=== PATIENT | male | born 1940 | race Caucasian/White ===

== ENCOUNTER → 2017-08-10 14:11 | Outpatient (CLI) | payer MEDICARE, OTHER ==
[~2017-08-10 14:11] MED LIST: ASPIRIN325 MG PO; HYDROCODON-ACE1 EAC7 PO; LEVOTHYROXINE100 MCG PO; PREDNISONE20 MG PO; PROAIR HFA8.5 GM INH; ROBITUSSIN DM 110 ML PO; VASOTEC5 MG PO; ZPAK PO
== END | disposition home or self-care (01) ==
LOC: D.CT 14:11
DX: R63.4 Abnormal weight loss (principal)

== ENCOUNTER 2017-10-11 07:30 | Inpatient (IN) | payer MEDICARE, OTHER ==
[2017-10-10 09:49] LABS: BASOPHILS 0.2 % (0-2); EOSINOPHILS 1.9 % (0-7); HEMATOCRIT 41.6 % (42.0-54.0); HEMOGLOBIN 13.9 g/dL (13.5-17.5); IMMATURE GRANULOCYTES 0.3 % (0-5); LYMPHOCYTES 21.1 % (15-50); MCHC 33.4 g/dL (31.0-37.0); MCV 95.9 fL (80.0-100.0); MEAN PLATELET VOLUME 10.1 fL (7.4-10.4); MONOCYTES 8.7 % (2-11); NEUTROPHILS 67.8 % (40-80); PLATELET COUNT 171 10x3/uL (130-400); RBC 4.34 10x6/uL (4.20-6.10); RDW 12.4 % (11.5-14.5); WBC 5.9 10x3/uL (4.8-10.8)
[2017-10-10 09:54] LABS: APPEARANCE CLEAR (CLEAR); BILIRUBIN NEGATIVE (NEGATIVE); COLOR YELLOW (YELLOW); GLUCOSE NEGATIVE (NEGATIVE); KETONE NEGATIVE (NEGATIVE); NITRITE NEGATIVE (NEGATIVE); PROTEIN NEGATIVE (NEGATIVE); UROBILINOGEN NORMAL (NORMAL)
[2017-10-10 09:55] LABS: BACTERIA FEW /hpf (NONE SEEN); EPITHELIAL CELLS OCC /hpf (0-5); MUCUS >1+ /lpf (NONE SEEN); RED CELLS - URINE 0-5 /hpf (0-5); WHITE CELLS - URINE OCC /hpf (0-5)
[2017-10-10 09:57] LABS: APTT 39.5 SECONDS (22.8-39.4); INR 0.97 (0.85-1.17); PROTIME 12.5 SECONDS (11.6-15.0)
[2017-10-10 10:03] LABS: ALKALINE PHOSPHATASE 107 U/L (46-116); ALT (SGPT) 22 U/L (10-68); BILIRUBIN - TOTAL 0.42 mg/dL (0.2-1.3); CALC OSMOLALITY 275 mosm/kg (275-300); CALCIUM 9.3 mg/dL (8.5-10.1); CARBON DIOXIDE 34.3 mmol/L (21.0-32.0); CHLORIDE - SERUM 99 mmol/L (98-107); GLUCOSE 97 mg/dL (74-106); PROTEIN - SERUM 7.4 g/dL (6.4-8.2); SODIUM 137 mmol/L (136-145); UREA NITROGEN 18 mg/dL (7-18); eGFR NON AFRICAN AMERICAN 77 mL/min (90-120)
[~2017-10-11] VITALS: Ht 188 cm; Wt 73.1 kg
[2017-10-11] VITALS (16 sets, daily range): BP systolic 109–140; BP diastolic 61–94; BMI 20.1
--- NOTE | ~2017-10-11 | OP ---
PATIENT NAME: LEEROY CUELLAR MEDICAL RECORD: [id number] :44 LOCATION:D.CVI [id number] ADMISSION DATE:10/11/17 SURGEON: BENSON JUSTICE MD DATE OF OPERATION: 10/11/2017 SURGEON: Benson Justice MD SALES OPERATIONS ASSISTANT: Anne Dugan MD and VIKTORIYA Stafford. OPERATION PERFORMED: Percutaneous endovascular aortic repair with: 1. Placement of bifurcated aortic endograft. 2. Placement of suprarenal extension. 3. Open right femoral exposure. 4. Aortogram times 3. 5. Right iliac angiogram. 6. Aortic angioplasty, right iliac angioplasty. PREOPERATIVE DIAGNOSIS: Abdominal aortic aneurysm. POSTOPERATIVE DIAGNOSIS: Abdominal aortic aneurysm. ANESTHESIA: General endotracheal anesthesia. ESTIMATED BLOOD LOSS: 100 cc. COMPLICATIONS: None. SPECIMENS: None. CONDITION: Stable. DISPOSITION: ICU. OPERATIVE FINDINGS: 1. Pigtail placed up the left through a 7-Cypriot sheath in order to evaluate the renal anatomy due to a previously noncontrasted scan and also the tortuosity and size of the iliac vessels, both were tortuous, slightly worse in the left somewhat more calcification on the right, so we elected the right as the ipsi side. 2. Two ProGlide devices predeployed on the right. A postprocedure ProGlide deployed on the left. 3. 25/110 main body and 25/95 suprarenal extension landed just below the renals. Completion angiogram with good flow. Reliant balloon as well as a 9 x 40. 4. Completion right iliac angiogram after percutaneous closure with no obstruction to flow. INDICATION: Abdominal aortic aneurysm. PROCEDURE NOTE IN DETAIL: Left femoral artery accessed. Guidewire placed under fluoroscopy and dilated to a 7-Cypriot sheath. Pigtail placed. Anatomy obtained. Then, ultrasound-guided right femoral access up to a 6-Cypriot sheath. Two ProGlides were deployed. Stiff wire placed on the right and then the AFX introducer system bifurcated main body, then loaded and placed, snared from the left, bifurcated body was deployed properly. Then, the suprarenal was loaded. The pigtail from the left side used to land the catheter just below the renal OPERATIVE REPORT [id number] LEEROY CUELLAR arteries. Pigtail reformed and placed within the lumen, working from the right aortic angioplasty with a Reliant balloon and a 9 x 40 right iliac. Completion angiogram performed and the catheter pulled back to the aortic bifurcation. Stiff wire changed to soft wire. Right ProGlides closed with minimal bleeding. Pigtail then removed from the left. ProGlide placed on the left using fluoroscopy with no apparent bleeding. Right groin incision closed with subcuticular suture and Dermabond on both sides. Good Doppler posterior tibial and dorsalis pedis pulses. Heparin total 10,000 was given after placement of the right femoral sheath and a total of 125 mg of protamine were used as the first ACT after 75 mg was still close to 200. TRANSINT:[id number] Voice Confirmation ID: [id number] DOCUMENT ID: [id number] BENSON JUSTICE MD at 1110 CC: QUINN ANDERSON MD [id number] DICTATION DATE: 10/11/17 1700 HOLLOW HANDLE KNIFE ASSEMBLER: 10/11/17 2322 ADM IN [facility] [address] [place] [address]
--- NOTE | ~2017-10-11 | HP ---
PATIENT: LEEROY CUELLAR MEDICAL RECORD: [id number] ACCOUNT: [id number] LOCATION:[facility]- : 44 ADMISSION DATE: 10/11/17 HISTORY AND PHYSICAL EXAMINATION LEEROY Dorsey (77yo, M) ID# [id number]. Date/Time10/04/2017 10:[id number] Dept.NP_[facility] ClinicProviDanilo JUSTICE MDInsuranceMed Primary: [place]) Insurance # : [id number] Employer Name : RETIRED Med Secondary: [employer] (MEDICARE SUPPLEMENT) Insurance # : [id number] Referring Provider Name : SANCHEZ NAVARRO Employer Name : RETIRED Prescription: DSTPSDIR - Member is eligible. Chief Complaint AAA, abdominal aortic aneurysm Patient's Care Team Referring Provider (): SANCHEZ NAVARRO: [address] [place] [phone], , Patient's Pharmacies [facility] ([facility]): [address] [place] [phone], , Vitals BP:130/90 sitting L arm 10/04/2017 11:05 amBP Cuff Size:adult 10/04/2017 11:05 amHR:72,reg 10/04/2017 11:06 amHt:6 ft 2 in 10/04/2017 11:06 amWt:156 lbs 10/04/2017 11:07 amNotes:no pain. incidental finding and consequent workup 10/04/2017 11:07 amBMI:20 10/04/2017 11:07 amAllergies Reviewed Allergies NKDASome allergies listed in Document: #[id number] could not be added to this patient's chart. Please review this document and add these allergies to the patient's chart manually as needed.Medications Reviewed Medications enalapril maleate 5 mg fsgaii12/01/18 filledA[facility] SurprisePureSafe water systems Systemslevothyroxine 100 mcg hhwlme49/13/18 filledAvidBiotics Systemsoxygen 2L at night08/16/17 [facility] Internal Note: 10mg daily03/16/16 enteredJegeorgianaica TreatProblems Reviewed Problems Hypothyroidism Obstructive sleep apnea syndrome Hypertensive disorder Abdominal aortic aneurysm - Onset: 08/16/2017 Allergic rhinitis Asthma Chronic obstructive lung disease Chronic hypoxemic respiratory failure Arthritis Edema of lower extremity Dyspnea Family History Reviewed Family History Mother- Hypertensive disorder ( age: 73) - Myocardial infarctionFather- Hypertensive disorder ( age: 57) - [place] - Myocardial infarctionSocial History HISTORY AND PHYSICAL [id number] LEEROY CUELLAR Reviewed Social History Cardiology Family history of heart disease?: Y Smoking Status: Former smoker (Notes: quit in 1998, 1-1.5 pack per day 40 years) High blood pressure: Y Overweight: N Obese: N Diabetes: N Alcohol intake: None Diet: Regular Surgical History Reviewed Surgical History prostatectomy Past Medical History Reviewed Past Medical History COPD: Y - o2 dependent Cancer: Y - prostate High Blood Pressure: Y Hypothyroidism: Y Prostate Problems: Y Notes: unexplained weight loss, multiple nodules of lung Documents for Discussion N/A Screening None recorded. HPI asymptomatic 4.8 cm abdominal aortic aneurysm found on evaluation for weight loss History of smoking, no family history of aneurysm COPD, nighttime oxygen therapy ROS Additionally reports: as reviewed in the chart with the patient ROS as noted in the HPI Physical Exam Patient is a 77-year-old male. Constitutional: General Appearance well nourished and developed and healthy-appearing. Level of Distress NAD. Ambulation ambulating normally. Cardiovascular: Apical Impulse not displaced or no thrill. Heart Auscultation normal s1 and s2; no murmurs, rubs, or gallops; and RRR. Arterial Pulses no abdominal aor ta bruits, femoral bruits, or popliteal bruits and 2+ bilateral, carotid 2+ bilateral, femoral 2+ bilateral, popliteal 2+ bilateral, and dorsalis pedis 2+ bilateral. Edema no edema or varicosities. Lungs: Repiratory Effort no dyspnea. Percussion no hyperr esonance or dullness or flatness. Auscultation no wheezing, rhonchi, or rales / crackles and breathing sounds normal, good air movement, and CTA except as noted. Abdomen: Bowl Sounds normal. Inspection and Palpation no tenderness, guarding, masses, or marylin ound tenderness and soft and non-distended. Liver non-tender and no hepatomegaly. Spleen non-tender and no splenomegaly. Hernia none palpable. Musculoskeletal System: Gait And Stance normal gait and stance. Digits and Nails normal nails and no cyanosis. HISTORY AND PHYSICAL [id number] LEEROY CUELLAR Neurologic: Cranial Nerves grossly intact. Reflexes DTRs 2+ bilaterally throughout. Sensation grossly intact. Lymph Nodes: Lymph Nodes no cervical LAD, supraclavicular LAD, axillary LAD, or inguinal LAD. Eyes: Lids and Conjunctivae no discharge or pallor and non-injected. Pupils PERRLA. Cornea grossly intact. EOM EOMI. Lens clear. Sclerae non-icteric. Neck: Neck no masses, enlarged lymph nodes, or carotid bruits and supple and trachea midline. Thyroid no enlargement or nodules and non-tender. Skin: Inspection and Palpation no rash, lesions, ulcers, jaundice, or abnormal nevi; chronic venous stasis changes of both lower extremities from just above the ankle. Assessment / Plan 1. Abdominal aortic aneurysm I71.4: Abdominal aortic aneurysm, without rupture Discussion Notes the patient's granddaughter was with him as his has illness and could not come to the office. We discussed abdominal aortic aneurysms, the risk of rupture, and the possible treatments including watchful waiting. We have no comparison scans With significant COPD it is unlikely that this patient will improve as an operative candidate and he appears to have good anatomy for endovascular repair on this noncontrasted scan. We provided the patient with a booklet We discussed the possible risks benefits and the need for postoperative surveillance, after he left he called back wishing to schedule surgery which will be scheduled next week SYLVIA JUSTICE MD at 1329 CC: [id number] DICTATION DATE: 10/04/17 1040 BATTALION CHIEF: DM 10/06/17 1450 ADM IN [facility] [address] [place] [address]
[~2017-10-11 07:30] MED LIST changes: -ASPIRIN325 MG PO; -HYDROCODON-ACE1 EAC7 PO
[2017-10-11 17:25] LABS: BASOPHILS 0.2 % (0-2); EOSINOPHILS 2.5 % (0-7); HEMATOCRIT 33.7 % (42.0-54.0); HEMOGLOBIN 11.1 g/dL (13.5-17.5); IMMATURE GRANULOCYTES 0.2 % (0-5); LYMPHOCYTES 21.5 % (15-50); MCH 31.5 pg (26.0-34.0); MCHC 32.9 g/dL (31.0-37.0); MCV 95.7 fL (80.0-100.0); MONOCYTES 7.2 % (2-11); NEUTROPHILS 68.4 % (40-80); PLATELET COUNT 129 10x3/uL (130-400); RBC 3.52 10x6/uL (4.20-6.10); RDW 12.6 % (11.5-14.5); WBC 6.4 10x3/uL (4.8-10.8)
[2017-10-11 17:33] LABS: APTT 32.9 SECONDS (22.8-39.4)
[2017-10-11 17:36] LABS: CALC OSMOLALITY 281 mosm/kg (275-300); CALCIUM 8.2 mg/dL (8.5-10.1); CARBON DIOXIDE 29.3 mmol/L (21.0-32.0); CHLORIDE - SERUM 105 mmol/L (98-107); CREATININE - SERUM 0.8 mg/dL (0.6-1.3); GLUCOSE 108 mg/dL (74-106); SODIUM 140 mmol/L (136-145); UREA NITROGEN 18 mg/dL (7-18); eGFR NON AFRICAN AMERICAN > 90 mL/min (90-120)
[2017-10-11 17:44] LABS: INR 1.24 (0.85-1.17); PROTIME 15.2 SECONDS (11.6-15.0)
[2017-10-12] VITALS (29 sets, daily range): BP systolic 93–143; BP diastolic 46–78; Ht 188 cm; Wt 73.1 kg
[2017-10-12 06:11] LABS: HEMATOCRIT 28.9 % (42.0-54.0); HEMOGLOBIN 9.6 g/dL (13.5-17.5); MCH 31.8 pg (26.0-34.0); MCHC 33.2 g/dL (31.0-37.0); MCV 95.7 fL (80.0-100.0); MEAN PLATELET VOLUME 9.6 fL (7.4-10.4); RBC 3.02 10x6/uL (4.20-6.10); RDW 12.8 % (11.5-14.5)
[2017-10-12 06:42] LABS: ANION GAP 8.9 mmol/L (8-16); CALCIUM 7.7 mg/dL (8.5-10.1); CARBON DIOXIDE 29.1 mmol/L (21.0-32.0)
[2017-10-12 06:45] LABS: CREATININE - SERUM 1.1 mg/dL (0.6-1.3)
[2017-10-13] VITALS (10 sets, daily range): BP systolic 118–148; BP diastolic 67–84
[2017-10-13] MEDS ORDERED: ASPIRIN325 MG PO (10:43)
[2017-10-13] MEDS ORDERED: HYDROCODON-ACE1 EAC7 PO (10:46)
== END 2017-10-13 12:00 | disposition home or self-care (01) | DRG 269 ==
LOC: D.SDCHOLD 07:30 → D.CVICU 09:45 → D.SDCHOLD 09:45 → D.CVICU 14:49 → D.SDCHOLD 10-12 07:30 → D.CVICU 10-13 12:00
PROVIDERS: Thoracic Surgery (Cardiothoracic Vascular Surgery)
PROC: 04V03D6 (ICD-10-PCS; principal; 2017-10-11 13:00)
DX: I71.4 Abdominal aortic aneurysm, without rupture (principal); J96.11 Chronic respiratory failure with hypoxia; R00.1 Bradycardia, unspecified; E03.9 Hypothyroidism, unspecified; G47.33 Obstructive sleep apnea (adult) (pediatric); I10 Essential (primary) hypertension

== ENCOUNTER → 2018-02-01 10:28 | Outpatient (CLI) | payer MEDICARE, OTHER ==
[2017-10-12 09:02] VITALS: BMI 20.1
[~2018-02-01 10:28] MED LIST changes: +ASPIRIN325 MG PO; +HYDROCODON-ACE1 EAC7 PO
== END | disposition home or self-care (01) ==
LOC: D.US 10:28 → D.CT 11:30
DX: I71.4 Abdominal aortic aneurysm, without rupture (principal); I73.9 Peripheral vascular disease, unspecified; M79.605 Pain in left leg; M79.604 Pain in right leg

== ENCOUNTER → 2018-10-30 09:59 | Outpatient (CLI) | payer OTHER ==
[2017-10-12 09:02] VITALS: BMI 20.1
== END | disposition home or self-care (01) ==
LOC: D.CT 09:59
PROVIDERS: ATTEND Thoracic Surgery (Cardiothoracic Vascular Surgery)
DX: I71.4 Abdominal aortic aneurysm, without rupture (principal)